=== PATIENT | female | born 1980 | race Caucasian/White ===

== ENCOUNTER 2021-02-09 19:43 | Inpatient (IN) | payer OTHER ==
[~2021-02-09] VITALS: Ht 152.4 cm; Wt 79.4 kg
[2021-02-09] MEDS ORDERED: LR 1,000 ML IV ONE (20:30)
[2021-02-09] MEDS ORDERED: CEFAZOLIN 2 GM IVPB PREMIX 50 ML IV ONE (20:30)
[2021-02-09 20:50] VITALS: BP_SYST 133
[2021-02-09] MEDS ORDERED: TEMAZEPAM 15 MG CAPSULE PO PRN (21:00)
[2021-02-09 21:02] LABS: BASOPHILS % (AUTO) 0.2 % (0.0-2.0); EOSINOPHILS # (AUTO) 0.1 K/uL (0.0-0.4); EOSINOPHILS % (AUTO) 0.6 % (0.0-4.0); HEMATOCRIT 37.8 % (36-48); HEMOGLOBIN 12.8 g/dL (12.0-16.0); LYMPHOCYTES # (AUTO) 1.8 K/uL (1.0-5.5); LYMPHOCYTES % (AUTO) 18.4 % (20.5-51.5); MEAN CORPUSCULAR HEMOGLOBIN 30 pg (27-31); MEAN CORPUSCULAR HGB CONC 34 % (32-36); MEAN CORPUSCULAR VOLUME 88 fL (79.0-98.0); MONOCYTES # (AUTO) 0.6 K/uL (0.0-1.0); MONOCYTES % (AUTO) 6.4 % (1.7-9.3); NEUTROPHILS # (AUTO) 7.3 K/uL (1.8-7.7); NEUTROPHILS % (AUTO) 74.4 % (40.0-70.0); PLATELET COUNT (AUTO) 135 K/uL (130-430); RED CELL DISTRIBUTION WIDTH 13.7 % (9.0-15.0); WHITE BLOOD COUNT (AUTO) 9.8 K/uL (4.8-10.8)
[2021-02-09] MEDS ORDERED: AMPICILLIN SODIUM 2 GM VIAL ONE (21:56)
[2021-02-09] MEDS ORDERED: AMPICILLIN SODIUM 2 GM in NS 100 ML IV ONE (22:00)
[2021-02-09 22:28] LABS: CLARITY/URINE CLEAR (CLEAR); COLOR,URINE YELLOW (YELLOW); PROTEIN URINE TRACE (NEGATIVE)
[2021-02-09 22:29] LABS: BILIRUBIN,URINE NEGATIVE (NEGATIVE); BLOOD, URINE 1+ (NEGATIVE); GLUCOSE,URINE NEGATIVE (NEGATIVE); KETONES,URINE NEGATIVE (NEGATIVE); LEUKOCYTE ESTERASE ,URINE NEGATIVE (NEGATIVE); NITRITE, URINE NEGATIVE (NEGATIVE); UROBILINOGEN,URINE 0.2 (0.2-1.0)
[2021-02-09 22:32] LABS: BACTERIA,URINE None Seen /HPF (None Seen); WBC,URINE NONE SEEN /HPF (0-3)
[2021-02-09 22:33] LABS: TRICHOMONAS,URINE None Seen /HPF (None Seen); YEAST,URINE None Seen /HPF (None Seen)
[2021-02-09] MEDS ORDERED: LR 1,000 ML IV.SOLN IV ONE (22:45)
[2021-02-09] MEDS ORDERED: MORPHINE SULFATE 10MG/10ML PF AMP EP ONE (22:45)
[2021-02-09] MEDS ORDERED: OXYTOCIN/0.9 % SODIUM CHLORIDE 20 UNITS/1,000 ML BAG IV ONE (22:45)
[2021-02-09] MEDS ORDERED: NS IRRIG SOLN 1000 ML IR ONE (22:45)
[2021-02-09] MEDS ORDERED: ONDANSETRON HCL 4 MG/2 ML VIAL IVP ONE (22:45)
[2021-02-09] MEDS ORDERED: BUPIVACAINE /PF 0.75% 10 ML VIAL INJ ONE (22:45)
[2021-02-09] MEDS ORDERED: KETOROLAC TROMETHAMINE 30 MG VIAL IVP PRN (23:00)
[2021-02-09] MEDS ORDERED: OXYTOCIN/0.9 % SODIUM CHLORIDE 1,000 ML IV ONE (23:00)
[2021-02-09] MEDS ORDERED: MEASLES,MUMPS&RUBELLA VACC/PF 12500 UNIT/0.5 ML VIAL SUBQ PRN (23:00)
[2021-02-09] MEDS ORDERED: LR 1,000 ML IV SCH (23:00)
[2021-02-09] MEDS ORDERED: DIPH-TET-PERTUS Vaccine 0.5 ML VIAL (ADACEL) I.M. PRN (23:00)
[2021-02-09] MEDS ORDERED: LANOLIN 7 GM OINT. TP PRN (23:00)
[2021-02-09] MEDS ORDERED: BISACODYL 10 MG/SUPPOSITORY RC PRN (23:00)
[2021-02-09] MEDS ORDERED: ANUSOL 1 EA SUPP.RECT (PREPARATION H) RC PRN (23:00)
[2021-02-09] MEDS ORDERED: NALOXONE HCL 0.4 MG/ML AMP (NARCAN) IVP PRN ×2 (23:30)
[2021-02-09] MEDS ORDERED: DIPHENHYDRAMINE INJ 50 MG/ML VIAL IVP PRN (23:30)
[2021-02-09] MEDS ORDERED: KETOROLAC TROMETHAMINE 60 MG/2 ML VIAL IM PRN (23:30)
[2021-02-09] MEDS ORDERED: ONDANSETRON HCL 4 MG/2 ML VIAL IVP PRN (23:30)
[2021-02-10 00:01] VITALS: BP_SYST 113
[2021-02-10] MEDS ORDERED: OXYTOCIN 10 UNIT/ML VIAL ONE (00:09)
[2021-02-10 06:52] LABS: BASOPHILS # (AUTO) 0.1 K/uL (0.0-0.2); BASOPHILS % (AUTO) 0.5 % (0.0-2.0); EOSINOPHILS # (AUTO) 0.1 K/uL (0.0-0.4); EOSINOPHILS % (AUTO) 0.6 % (0.0-4.0); HEMATOCRIT 34.4 % (36-48); HEMOGLOBIN 11.5 g/dL (12.0-16.0); LYMPHOCYTES # (AUTO) 1.7 K/uL (1.0-5.5); LYMPHOCYTES % (AUTO) 13.2 % (20.5-51.5); MEAN CORPUSCULAR HEMOGLOBIN 30 pg (27-31); MEAN CORPUSCULAR HGB CONC 33 % (32-36); MEAN CORPUSCULAR VOLUME 90 fL (79.0-98.0); MONOCYTES # (AUTO) 0.4 K/uL (0.0-1.0); MONOCYTES % (AUTO) 3.3 % (1.7-9.3); NEUTROPHILS # (AUTO) 10.9 K/uL (1.8-7.7); NEUTROPHILS % (AUTO) 82.4 % (40.0-70.0); PLATELET COUNT (AUTO) 119 K/uL (130-430); RED BLOOD CELL COUNT(AUTO) 3.84 MIL/uL (4.2-6.2); RED CELL DISTRIBUTION WIDTH 13.9 % (9.0-15.0); WHITE BLOOD COUNT (AUTO) 13.2 K/uL (4.8-10.8)
[2021-02-10] MEDS: DOCUSATE SODIUM 100 MG CAPSULE PO SCH ×2 (12:12→21:09)
[2021-02-10] MEDS: IBUPROFEN 800 MG TABLET PO PRN ×3 (12:13→23:45)
[2021-02-10] MEDS ORDERED: SENNOSIDES/DOCUSATE SODIUM 1 TAB TABLET(SENOKOT-S) PO SCH (21:00)
[2021-02-10] MEDS: SIMETHICONE 80 MG TAB.CHEW PO PRN (21:08)
[2021-02-10] MEDS: OXYCODONE/ACETAMINOPHEN 5-325 TABLET PO PRN (21:10)
[2021-02-11] MEDS: OXYCODONE/ACETAMINOPHEN 5-325 TABLET PO PRN ×5 (03:13→23:45)
[2021-02-11] MEDS: SIMETHICONE 80 MG TAB.CHEW PO PRN ×3 (03:13→17:54)
[2021-02-11] MEDS: IBUPROFEN 800 MG TABLET PO PRN ×4 (06:10→23:44)
[2021-02-11] MEDS: DOCUSATE SODIUM 100 MG CAPSULE PO SCH (17:53)
[2021-02-12] MEDS: OXYCODONE/ACETAMINOPHEN 5-325 TABLET PO PRN ×4 (03:00→12:23)
[2021-02-12] MEDS: IBUPROFEN 800 MG TABLET PO PRN ×2 (06:01→12:10)
== END 2021-02-12 14:17 | disposition home or self-care (01) | DRG 787 ==
LOC: U 19:43 → SPU 20:17 → UNDOADMIN 20:17 → SPU 20:36
PROVIDERS: ADMIT Obstetrics & Gynecology; ATTEND Obstetrics & Gynecology
PROC: 10D00Z1 Extraction of Products of Conception, Low, Open Approach (ICD-10-PCS; principal; 2021-02-09 22:45)
DX: O34.211 Maternal care for low transverse scar from previous cesarean delivery (principal); O99.12 Other diseases of the blood and blood-forming organs and certain disorders involving the immune mechanism complicating childbirth; O42.90 Premature rupture of membranes, unspecified as to length of time between rupture and onset of labor, unspecified weeks of gestation; Z20.822 Contact with and (suspected) exposure to COVID-19; D69.6 Thrombocytopenia, unspecified; Z3A.36 36 weeks gestation of pregnancy; Z37.0 Single live birth
CPT/HCPCS: 36415; 81000; 85025; 86592; 86886; 86900; 86901; 90715; J0290; J0690; J2274; J2405; J2590; J3490; J7030; J7120